=== PATIENT | female | born 1975 | race Caucasian/White ===

== ENCOUNTER → 2017-01-07 | Outpatient (CLI) | payer OTHER ==
[~2017-01-07] MED LIST: NAPROSYN500 MG PO; NORCO 5-325 TA1 EACH PO; TRAMADOL 50 MG50 MG PO
== END ==
LOC: MRI 10:04
DX: R51 Headache (principal); R53.1 Weakness; I10 Essential (primary) hypertension

== ENCOUNTER → 2017-03-07 | Outpatient (CLI) | payer OTHER | LOC: MRI 02-07 13:14 | DX: G44.52 New daily persistent headache (NDPH) (principal) ==

== ENCOUNTER 2017-09-25 16:42 | Emergency (ER) | payer OTHER ==
[~2017-09-25] VITALS: Ht 165.1 cm; Wt 88.0 kg
[2017-09-25] MEDS ORDERED: TESSALON PERLE100 MG PO (17:38)
[2017-09-25] MEDS ORDERED: OSELB75 PO (17:38)
[2017-09-25] MEDS ORDERED: PROVENTIL HFA6.7 G1 INH (17:38)
== END 2017-09-25 17:46 | disposition home or self-care (01) ==
LOC: ER 16:42
DX: J11.1 Influenza due to unidentified influenza virus with other respiratory manifestations (principal)